=== PATIENT | male | born 1970 | race Caucasian/White ===

== ENCOUNTER 2018-09-19 11:25 | Emergency (ER) | payer MEDICAID, OTHER ==
[~2018-09-19] VITALS: Ht 175.3 cm; Wt 117.7 kg
[2018-09-19] MEDS ORDERED: ketorolac trometh inj. 60 MG/2 ML VIAL IM ONE (13:20)
[2018-09-19] MEDS ORDERED: ketorolac trometh. 30mg/ml inj. IM ONE (13:20)
[2018-09-19 13:59] VITALS: BP 165/85
== END 2018-09-19 14:07 | disposition home or self-care (01) ==
LOC: ER 11:25
DX: M65.30 Trigger finger, unspecified finger (principal); M79.642 Pain in left hand; G89.29 Other chronic pain
CPT/HCPCS: 29125; 96372; 99283; J1885

== ENCOUNTER 2019-05-30 12:34 | Emergency (ER) | payer MEDICAID ==
[~2019-05-30] VITALS: Ht 177.8 cm; Wt 115.9 kg
[2019-05-30 12:56] VITALS: BP_DIAS 111
[2019-05-30] MEDS ORDERED: LISI10TA4 PO (13:14)
[2019-05-30] MEDS ORDERED: lisinopril 10 MG tablet PO ONE (13:15)
[2019-05-30 13:33] VITALS: BP_SYST 111
== END 2019-05-30 13:34 | disposition home or self-care (01) ==
LOC: ER 12:37
DX: I10 Essential (primary) hypertension (principal); Z76.0 Encounter for issue of repeat prescription; G89.29 Other chronic pain; Z72.89 Other problems related to lifestyle; Z79.899 Other long term (current) drug therapy
CPT/HCPCS: 99282

== ENCOUNTER 2019-12-26 15:34 | Emergency (ER) | payer MEDICAID ==
[~2019-12-26] VITALS: Ht 177.8 cm; Wt 118.0 kg
[~2019-12-26 15:34] MED LIST: LISI10TA4 PO
[2019-12-26 15:50] VITALS: BP 177/123
== END 2019-12-26 16:53 | disposition home or self-care (01) ==
LOC: ER 15:34
DX: I10 Essential (primary) hypertension (principal); G89.29 Other chronic pain; Z79.899 Other long term (current) drug therapy
CPT/HCPCS: 99281

== ENCOUNTER 2023-03-25 12:28 | Emergency (ER) | payer MEDICAID ==
[~2023-03-25] VITALS: Ht 177.8 cm; Wt 118.2 kg
[~2023-03-25 12:28] MED LIST changes: +LISI10TA27 PO; -LISI10TA4 PO
[2023-03-25 13:16] VITALS: BP 151/98; PULSE 82; TEMP 98.3; O2SAT 97
[2023-03-25] MEDS ORDERED: IBUP-1984 PO (13:53)
[2023-03-25] MEDS ORDERED: PRED20TA PO (13:53)
[2023-03-25] MEDS ORDERED: ketorolac trometh inj. 60 MG/2 ML VIAL IM ONE (14:05)
[2023-03-25 14:15] VITALS: RESP 18
== END 2023-03-25 14:21 | disposition home or self-care (01) ==
LOC: ER 12:29
DX: G56.03 Carpal tunnel syndrome, bilateral upper limbs (principal); I10 Essential (primary) hypertension; G89.29 Other chronic pain; Z79.899 Other long term (current) drug therapy
CPT/HCPCS: 96372; 99283; J1885

== ENCOUNTER 2023-05-07 14:13 | Emergency (ER) | payer MEDICAID ==
[~2023-05-07] VITALS: Ht 177.8 cm; Wt 109.1 kg
[2023-05-07] MEDS ORDERED: dexamethasone sod phosphate 10mg/ml inj IM STA (14:27)
[2023-05-07] MEDS ORDERED: ketorolac trometh inj. 60 MG/2 ML VIAL IM ONE (14:30)
[2023-05-07] MEDS ORDERED: PROM118S5 PO (15:39)
[2023-05-07] MEDS ORDERED: ALBU8HFA INH (15:39)
[2023-05-07] MEDS ORDERED: PRED20TA PO (15:39)
[2023-05-07 16:01] VITALS: BP 128/65; PULSE 76; RESP 16; TEMP 99; O2SAT 99
== END 2023-05-07 16:07 | disposition home or self-care (01) ==
LOC: ER 14:13
DX: J06.9 Acute upper respiratory infection, unspecified (principal); R53.83 Other fatigue; R06.02 Shortness of breath; Z20.822 Contact with and (suspected) exposure to COVID-19
CPT/HCPCS: 36415; 71045; 87811; 96372; 99284; J1100; J1885

== ENCOUNTER 2023-05-19 15:44 | Emergency (ER) | payer MEDICAID ==
[~2023-05-19] VITALS: Ht 175.3 cm; Wt 118.2 kg
[~2023-05-19 15:44] MED LIST changes: +ALBU8HFA INH
[2023-05-19 15:56] VITALS: BP 160/90; PULSE 87; RESP 18; O2SAT 98
[2023-05-19] MEDS ORDERED: AMOX-117 PO (16:01)
[2023-05-19 16:20] VITALS: TEMP 97.8
== END 2023-05-19 16:22 | disposition home or self-care (01) ==
LOC: ER 15:45
DX: S70.362A Insect bite (nonvenomous), left thigh, initial encounter (principal); I10 Essential (primary) hypertension; Z79.2 Long term (current) use of antibiotics; Z79.899 Other long term (current) drug therapy; W57.XXXA Bitten or stung by nonvenomous insect and other nonvenomous arthropods, initial encounter; Y93.89 Activity, other specified; Y92.89 Other specified places as the place of occurrence of the external cause; Y99.8 Other external cause status
CPT/HCPCS: 99283

== ENCOUNTER 2023-06-07 12:46 | Emergency (ER) | payer MEDICAID ==
[~2023-06-07] VITALS: Ht 177.8 cm; Wt 122.9 kg
[2023-06-07 13:03] VITALS: BP 140/86; PULSE 79; RESP 16; TEMP 99.8; O2SAT 97
[2023-06-07] MEDS ORDERED: PRED10TA23 PO (14:28)
== END 2023-06-07 14:37 | disposition home or self-care (01) ==
LOC: ER 12:46
DX: G56.03 Carpal tunnel syndrome, bilateral upper limbs (principal); I10 Essential (primary) hypertension; G89.29 Other chronic pain; M54.9 Dorsalgia, unspecified; Z72.89 Other problems related to lifestyle; Z88.8 Allergy status to other drugs, medicaments and biological substances; Z79.899 Other long term (current) drug therapy
CPT/HCPCS: 99283

== ENCOUNTER 2024-07-04 10:45 | Emergency (ER) | payer MEDICAID ==
[~2024-07-04] VITALS: Ht 177.8 cm; Wt 115.2 kg
[~2024-07-04 10:45] MED LIST changes: -ALBU8HFA INH; +DICL75TA5 PO
[2024-07-04 10:51] VITALS: BP 157/97; PULSE 67; RESP 18; O2SAT 97
[2024-07-04] MEDS ORDERED: proparacaine 0.5% ophthalmic drops 15ml LEFTEYE ONE (11:05)
[2024-07-04] MEDS: fluorescein sod 1mg ophthalmic strip LEFTEYE ONE (11:17)
[2024-07-04] MEDS: proparacaine 0.5% ophthalmic drops 15ml LEFTEYE ONE (11:17)
[2024-07-04] MEDS ORDERED: ERYT1OIN6 LEFTEYE (12:04)
[2024-07-04 12:22] VITALS: TEMP 97.8
== END 2024-07-04 12:24 | disposition home or self-care (01) ==
LOC: ER 10:46
DX: S05.02XA Injury of conjunctiva and corneal abrasion without foreign body, left eye, initial encounter (principal); I10 Essential (primary) hypertension; G89.29 Other chronic pain; M54.9 Dorsalgia, unspecified; Z72.89 Other problems related to lifestyle; Z79.899 Other long term (current) drug therapy; X58.XXXA Exposure to other specified factors, initial encounter; Y93.89 Activity, other specified; Y92.89 Other specified places as the place of occurrence of the external cause; Y99.8 Other external cause status
CPT/HCPCS: 65220; 99283; 99284